=== PATIENT | male | born 1970 | race Two or more races ===

== ENCOUNTER 2022-04-20 17:52 | Inpatient (IN) | payer MEDICAID, OTHER ==
[~2022-04-20] VITALS: Ht 162.6 cm; Wt 68.0 kg
[2022-04-20] MEDS ORDERED: SODIUM CHLORIDE 0.9% 500 ML IVB ONE (21:30)
[2022-04-20 21:58] LABS: Basophils # (auto) 0.1 10 ^3/uL (0-0.2); Basophils % (auto) 1.3 % (0.0-2.0); Eosinophils # (auto) 0.5 10 ^3/uL (0-0.8); Eosinophils % (auto) 10.7 % (0.0-7.0); Hematocrit 42.8 % (41.0-53.0); Hemoglobin 14.7 g/dL (13.5-17.5); Lymphocytes # (auto) 1.3 10 ^3/uL (0.4-5.4); Lymphocytes % (auto) 27.4 % (10.0-50.0); Mean Corpuscular Hemoglobin 31.7 pg (28.0-32.0); Mean Corpuscular Hgb Conc. 34.3 g/dL (32.0-36.0); Mean Corpuscular Volume 92.4 fL (80.0-100.0); Monocytes # (auto) 0.4 10 ^3/uL (0-1.3); Monocytes % (auto) 7.9 % (0.0-12.0); Neutrophils # (auto) 2.5 10 ^3/uL (1.6-8.6); Neutrophils % (auto) 52.7 % (37.0-80.0); Nucleated Red Blood Cells % 0.1 %; Red Blood Cells 4.64 10^6/uL (4.5-5.90); Red Cell Distribution Width 17.8 % (11.8-14.3); White Blood Cell 4.7 10^3/uL (4.4-10.8)
[2022-04-20 22:22] LABS: Albumin 3.2 g/dL (3.4-5.0); BUN/Creatinine Ratio 10.4; Calcium 8.6 mg/dL (8.5-10.1); Potassium 4.1 mmol/L (3.5-5.1); Total Protein 6.9 g/dL (6.4-8.2)
[2022-04-20 22:35] LABS: INR 1.1 (0.9-1.15); Partial Thromboplastin Time 32.5 sec (24.6-33.4)
[2022-04-21] MEDS: HYDROcodone-ACET 5/325MG TAB PO ONE ×2 (02:05→02:52)
[2022-04-21] MEDS ORDERED: SODIUM CHLORIDE 0.9% 1,000 ML IV ONE (02:30)
[2022-04-21] MEDS ORDERED: TEMAZEPAM 15 MG CAP PO PRN (02:30)
[2022-04-21] MEDS ORDERED: chlordiazePOXIDE HCL 25 MG CAP PO PRN (02:30)
[2022-04-21] MEDS ORDERED: ACETAMINOPHEN 325 MG TAB PO PRN (02:30)
[2022-04-21] MEDS ORDERED: ONDANSETRON HCL 4 MG/2 ML VIAL IV PRN (02:30)
[2022-04-21 03:37] LABS: Amphetamine Screen, Urine NEGATIVE (NEGATIVE); Barbiturate Scree,Urine NEGATIVE (NEGATIVE); Benzodiazephine Screen, Urine NEGATIVE (NEGATIVE); Cannabinoid Screen, Urine NEGATIVE (NEGATIVE); Cocaine Screen, Urine NEGATIVE (NEGATIVE); Opiate Scree,Urine NEGATIVE (NEGATIVE); Phencyclidine Screen, Urine NEGATIVE (NEGATIVE)
[2022-04-21 08:00] VITALS: BP 118/74
[2022-04-21] MEDS ORDERED: PANTOPRAZOLE 40 MG TAB PO SCH (10:00)
[2022-04-21 12:00] VITALS: BP 138/71
[2022-04-21] MEDS ORDERED: FOLIC ACID 1 MG, MULTIPLE VITAMIN 10 ML, MAGNESIUM SULF SDV 50% 8 MEQ, THIAMINE INJ 100... INJ SCH ×5 (12:00)
== END 2022-04-21 12:10 | disposition left against medical advice (07) | DRG 52 ==
LOC: ER 17:52 → EDBD 17:52 → OVERFLOW 04-21 02:27 → WEST WING 04-21 07:59
PROVIDERS: ADMIT Nurse Practitioner; ATTEND Family Medicine
DX: G92.9 Unspecified toxic encephalopathy (principal); E86.0 Dehydration; Z20.822 Contact with and (suspected) exposure to COVID-19; F10.129 Alcohol abuse with intoxication, unspecified; Z53.29 Procedure and treatment not carried out because of patient's decision for other reasons; R79.89 Other specified abnormal findings of blood chemistry; S00.81XA Abrasion of other part of head, initial encounter; W18.39XA Other fall on same level, initial encounter; Y93.89 Activity, other specified; Y92.89 Other specified places as the place of occurrence of the external cause; Y99.8 Other external cause status; Z71.41 Alcohol abuse counseling and surveillance of alcoholic
CPT/HCPCS: 36415; 70450; 72125; 80053; 80307; 80320; 84484; 85025; 85610; 85730; 87426; 93005; 96360; 96361; 99291; G0378